=== PATIENT | male | born 1935 | race Caucasian/White ===

== ENCOUNTER 2020-03-04 10:04 | Day surgery (SDC) | payer MEDICARE, BC ==
[~2020-03-04 10:04] MED LIST: Lactated Ringers 1,000 ML IV SCH; Lidocaine 1%/Sod Bicarbonate in NS 8.4% 1 ML Syringe IDERM PRN; Sodium Chloride 0.9% 10 ML Syringe FLUSH PRN
--- NOTE | 2020-03-04 11:00 | PCM.PREANE ---
Preanesthetic Assessment - Anesthesia/Transfusion/Family Hx Anesthesia History: Prior Anesthesia Without Reaction Family History of Anesthesia Reaction: No Transfusion History: No Prior Transfusion(s) - Review of Systems General: No Symptoms, Other (multiple sclerosis) Pulmonary: No Symptoms Cardiovascular: Other (AICD/pacemaker, s/p CABG, denies any chest pain, stopped coumadinx2 weeks) Gastrointestinal: No Symptoms Neurological: No Symptoms, Numbness (right arm numbness) Other: Reports: Easy Bleeding, Easy Bruising, Thyroid Problems, Depression - Physical Assessment NPO Status Date: 03/03/20 NPO Status Time: 18:00 Height: 1.73 m Weight: 68.492 kg ASA Class: 3 Mental Status: Alert & Oriented x3 Airway Class: Mallampati = 2 Dentition: Reports: Dentures (upper) Thyro-Mental Finger Breadths: 3 Mouth Opening Finger Breadths: 3 ROM/Head Extension: Full Lungs: Clear to Auscultation, Normal Respiratory Effort Cardiovascular: Regular Rate, Regular Rhythm - Allergies Allergies/Adverse Reactions: Allergies Allergy/AdvReac Type Severity Reaction Status Date / Time Sulfa (Sulfonamide Allergy Cannot Verified 03/03/20 13:41 Antibiotics) Remember - Blood Blood Available: No Product(s) Available: None - Anesthesia Plan Beta Cholo: Metoprolol Med Last Dose Date: 03/04/20 Med Last Dose Time: 07:00 - Acknowledgements Anesthesia Type Planned: General Anesthesia, MAC Pt an Appropriate Candidate for the Planned Anesthesia: Yes Alternatives and Risks of Anesthesia Discussed w Pt/Guardian: Yes Pt/Guardian Understands and Agrees with Anesthesia Plan: Yes PreAnesthesia Questionnaire - HOME MEDS Home Medications: Home Meds Amiodarone [Cordarone] 100 mg PO DAILY 03/03/20 [History] Aspirin [Halfprin] 81 mg PO DAILY 03/03/20 [History] Furosemide [Lasix] 40 mg PO DAILY 03/03/20 [History] Levothyroxine [Synthroid] 100 mcg PO DAILY 03/03/20 [History] Metoprolol Succinate 50 mg PO DAILY 03/03/20 [History] Mirtazapine [Remeron] 15 mg PO DAILY 03/03/20 [History] Simvastatin [Zocor] 40 mg PO DAILY 03/03/20 [History] Tamsulosin [Flomax] 0.4 mg PO DAILY 03/03/20 [History] Warfarin Sodium [Coumadin] 2 mg PO ASDIRECTED 03/03/20 [History] - CURRENT (IN HOUSE) MEDS Current Meds: Current Medications Lactated Ringer's (Ringers, Lactated) 1,000 mls @ 125 mls/hr IV ASDIRECTED [place] Stop: 03/04/20 23:00 Lidocaine/Sodium Bicarbonate (Buffered Lidocaine 1% In Ns 8.4%) 0.25 ml IDERM ONETIME PRN PRN Reason: Prior to IV Start Stop: 03/04/20 18:00 Sodium Chloride (Saline Flush) 10 ml FLUSH ASDIRECTED PRN PRN Reason: Keep Vein Open Stop: 03/04/20 18:00
[2020-03-04] MEDS ORDERED: Lidocaine 1% with EPINEPHrine 1:100,000 20 ML MDV ONE (11:26)
[2020-03-04] MEDS: Proparacaine 0.5% Ophth Soln 15 ML Bottle EYEBOTH SCH ×3 (11:55→12:06)
[2020-03-04] MEDS ORDERED: Propofol 200 MG/20 ML SDV ONE (12:09)
[2020-03-04] MEDS ORDERED: ePHEDrine Sulfate/0.9% NaCl/Pf 25 MG/5 ML SYRINGE IV ONE (12:32)
--- NOTE | 2020-03-04 12:54 | PCM48HPAN ---
Post Anesthesia Note - EVALUATION WITHIN 48HRS OF ANESTHETIC Vital Signs in Normal Range: Yes Patient Participated in Evaluation: Yes Respiratory Function Stable: Yes Airway Patent: Yes Cardiovascular Function Stable: Yes Hydration Status Stable: Yes Pain Control Satisfactory: Yes Nausea and Vomiting Control Satisfactory: Yes Mental Status Recovered: Yes Vital Signs: Last Vital Signs Temp 36.3 C 03/04/20 10:30 Pulse 62 03/04/20 10:30 Resp 20 03/04/20 10:30 BP 108/52 L 03/04/20 10:30 Pulse Ox 95 03/04/20 10:30
[2020-03-04] MEDS ORDERED: Dexamethasone/Tobramycin 0.1-0.3% Ophth Susp 5 ML Bottle EYEBOTH SCH (13:00)
== END 2020-03-04 13:50 | disposition home or self-care (01) ==
LOC: JD.SDS 10:04
PROVIDERS: ATTEND Ophthalmology
DX: H04.523 Eversion of bilateral lacrimal punctum (principal); H35.3132 Nonexudative age-related macular degeneration, bilateral, intermediate dry stage; H35.363 Drusen (degenerative) of macula, bilateral; H11.823 Conjunctivochalasis, bilateral; H04.563 Stenosis of bilateral lacrimal punctum; H02.103 Unspecified ectropion of right eye, unspecified eyelid; H02.106 Unspecified ectropion of left eye, unspecified eyelid; H04.223 Epiphora due to insufficient drainage, bilateral; F32.9 Major depressive disorder, single episode, unspecified; Z96.1 Presence of intraocular lens; Z88.2 Allergy status to sulfonamides; Z79.899 Other long term (current) drug therapy; Z79.82 Long term (current) use of aspirin
CPT/HCPCS: 67914; 68320; 68811; A9270; J0171; J2704; J7120

== ENCOUNTER 2020-05-12 17:13 | Emergency (ER) | payer MEDICARE, BC ==
[2020-05-12] MEDS ORDERED: Sodium Chloride 0.9% 10 ML Syringe FLUSH PRN (17:30)
[2020-05-12] MEDS ORDERED: HYDROmorphone 0.5 MG/0.5 ML Syringe IVPUSH ONE (17:36)
[2020-05-12] MEDS ORDERED: Ondansetron 4 MG/2 ML SDV IVPUSH ONE (17:36)
--- NOTE | 2020-05-12 17:36 | EDM.PDOC ---
ED HPI GENERAL MEDICAL PROBLEM - General Chief Complaint: Trauma Stated Complaint: FELL ON THE CEMENT HIT HIS FACE/PAIN ALL OVER BODY Time Seen by Provider: 05/12/20 17:20 Source of Information: Reports: Patient History Limitations: Reports: No Limitations - History of Present Illness INITIAL COMMENTS - FREE TEXT/NARRATIVE: 85-year-old male presents to the ED after having fallen down his outside concrete steps this morning. Patient states he was cleaning off the front stairs of his house and lost his balance and fell headfirst down 4 concrete stairs hitting his head very hard on the concrete landing. He did not lose consciousness. Did get the wind knocked out of him and subsequently has developed significant left-sided rib pain he did break his eyeglasses and has different ones on at this time. He states for a while he could not see out of his left eye but vision has returned to his left eye at this time. Patient has a contusion abrasion above his left lateral eyebrow. He is complaining of diffuse cervical neck pain worse than usual since the fall. Complaining of bilateral rib pain but worse on the left side since he fell. Abrasions to the left dorsal wrist over the ulnar styloid process. Bruising to the right elbow. Abrasion to the left anterior knee but able to walk without any hip pain. Injury occurred approximately 0730 hrs. this morning but he elected not to come to the ED until now due to increased pain. Of note the patient is on Coumadin chronically for atrial fibrillation. Remember when he had his PT/INR last checked. He has pain localized to his left forehead but no severe headache. He states his did give him 2 Tylenol tablets today and this did help somewhat with the pain. He is not sure what time this was. Onset: Today, Sudden Onset Date: 05/12/20 Onset Time: 07:30 Duration: Hour(s):, Getting Worse Location: Reports: Head (Abrasion contusion above the left eyebrow laterally.), Neck (Creased cervical neck pain compared to normal. Has terrible arthritis in his neck and lower back.), Chest (12 pain bilaterally anterior ribs.), Upper Extremity, Left (Contusion abrasion to the left dorsal ulnar wrist), Upper Extremity, Right (Bruise right elbow), Lower Extremity, Left (Contusion to the left knee) Quality: Reports: Ache, Throbbing Severity: Moderate Improves with: Reports: Medication (Chip did take the edge off the pain for a while today.), Rest Worsens with: Reports: Movement Context: Reports: Trauma (Fall down 4 concrete stairs early this a.m.). Denies: Activity, Exercise, Lifting, Sick Contact Associated Symptoms: Reports: Chest Pain. Denies: Confusion, Cough, cough w sputum, Diaphoresis, Fever/Chills, Headaches, Loss of Appetite, Malaise, Nausea/Vomiting, Rash, Seizure, Shortness of Breath, Syncope, Weakness Treatments COM[employer]: Reports: Acetaminophen (Tabs earlier today.) Thoracic Pain Score (Numeric/FACES): 6 - Related Data Allergies Allergy/AdvReac Type Severity Reaction Status Date / Time Sulfa (Sulfonamide Allergy Cannot Verified 05/12/20 17:31 Antibiotics) Remember Home Meds: Home Meds Amiodarone [Cordarone] 100 mg PO DAILY 03/03/20 [History] Aspirin [Halfprin] 81 mg PO DAILY 03/03/20 [History] Furosemide [Lasix] 40 mg PO DAILY 03/03/20 [History] Levothyroxine [Synthroid] 100 mcg PO DAILY 03/03/20 [History] Metoprolol Succinate 50 mg PO DAILY 03/03/20 [History] Mirtazapine [Remeron] 15 mg PO DAILY 03/03/20 [History] Simvastatin [Zocor] 40 mg PO DAILY 03/03/20 [History] Tamsulosin [Flomax] 0.4 mg PO DAILY 03/03/20 [History] Warfarin Sodium [Coumadin] 2 mg PO ASDIRECTED 03/03/20 [History] Acetaminophen/HYDROcodone [Elverta 325-5 MG] 1 tab PO Q6H #20 tablet 05/12/20 [Rx] Past Medical History HEENT History: Reports: Cataract (He had both cataracts fixed up within the last 6 months. Read sometimes without his glasses.), Other (See Below) (Wears glasses) Cardiovascular History: Reports: Afib (Is on Coumadin for this.), Arrhythmia, Bypass, CAD, Heart Failure, Hypertension, [place], PVD, SOB on Exertion Respiratory History: Reports: COPD (History of but not on oxygen.) Gastrointestinal History: Reports: GERD Genitourinary History: Reports: BPH Musculoskeletal History: Reports: Back Pain, Chronic, Neck Pain, Chronic, Osteoarthritis, Osteoporosis Endocrine/Metabolic History: Reports: Hypothyroidism (Levothyroxine 100 mcg daily) Social & Family History - Tobacco Use Smoking Status *Q: Former Smoker Used Tobacco, but Quit: Yes Month/Year Tobacco Last Used: 35 years ago Second Hand Smoke Exposure: No - Caffeine Use Caffeine Use: Reports: Coffee - Recreational Drug Use Recreational Drug Use: No - Living Situation & Occupation Living situation: Reports: Occupation: Retired Review of Systems - Review of Systems Review Of Systems: See Below Constitutional: Denies: Chills, Diaphoresis, Fever, Weakness Eyes: Reports: Glasses Ears: Reports: Other Nose: Reports: No Symptoms (He is moderately hard of hearing but does not wear hearing aids.) Mouth/Throat: Reports: No Symptoms Respiratory: Reports: Shortness of Breath, Other (Is have some pain on deep inspiration left ribs). Denies: Wheezing, Pleuritic Chest Pain, Cough Cardiovascular: Reports: Chest Pain (Injury to the ribs when he fell down stairs), Irregular Heart Rate, Lightheadedness (Neck atrial fibrillation. Patient lightheadedness). Denies: Edema GI/Abdominal: Reports: Constipation (There is no problems with constipation) Genitourinary: Reports: Other (Urinary frequency with nocturia usually 2-3 times nightly.) Musculoskeletal: Reports: Joint Pain (His hips lower back neck pain from arthritis.) Skin: Reports: Bruising (This is easily as he is on Coumadin.) Neurological: Reports: Weakness. Denies: Confusion, Dizziness, Headache, Numbness, Syncope, Tingling Psychiatric: Reports: No Symptoms ED EXAM, GENERAL - Physical Exam Exam: See Below Exam Limited By: No Limitations General Appearance: Alert, Mild Distress, Other (Temperature is 36.9 heart rate is 70. Respiratory to 16 BP 153/62 sats are 92% on room air. He has an obvious rib abrasion and small scalp hematoma above his left lateral eyebrow.) Eye Exam: Bilateral Eye: Normal Inspection, PERRL Ears: Normal External Exam Nose: Normal Inspection, Other (No injury to the nose appears to have occurred.) Throat/Mouth: Normal Inspection, Normal Lips, Normal Oropharynx, Other (Dental or tongue injuries identified. Mandible intact. No TMJ pain.) Head: Facial Swelling (Left eyebrow laterally.), Facial Tenderness (Slight swelling hematoma left lateral eyebrow area.). No: Sinus Tenderness Neck: Limited Range of Motion, Tender Lateral (Use tenderness in the midline and laterally of the cervical spine. He does report that is worse than normal), Tender Midline ( as he fell.) Respiratory/Chest: Lungs Clear, Normal Breath Sounds, Respiratory Distress (Mildly hypoxic by pulse oximetry at 92%.), Decreased Breath Sounds (Breath sounds are mildly diminished to the lower posterior lung tran bilaterally. No adventitial sounds are identified.), Other (Midline sternotomy incision from bypass surgery which he states was done greater than 20 years ago. He cannot remember for sure but he thinks he had 4 vessel bypass. He has a defibrillator pacemaker left upper anterior chest. He states the first 1 lasted for 7 years and this is his second 1 recently replaced. To his knowledge that the defibrillator has never gone off.) Cardiovascular: No JVD, No Murmur, No Rub, Irregularly Irregular (Chronic atrial fibrillation with controlled rate in the 70s. Patient has had previous open heart surgery with midline sternotomy evident. You have has a pacemaker defibrillator left upper anterior chest.). No: Normal Peripheral Pulses Peripheral Pulses: 1+: Posterior Tibial (L), Posterior Tibial (R), Dorsalis Pedis (L), Dorsalis Pedis (R), 2+: Carotid (L), Carotid (R) GI/Abdominal: Normal Bowel Sounds, Soft, Non-Tender, No Organomegaly, No Mass, Pelvis Stable, Other (No evidence of abdominal injury.) Back Exam: Other (Painful to sit up. No abrasions contusions appreciated to the posterior lateral thorax.) Extremities: Other (Patient has an abrasion and superficial skin loss over the ulnar styloid process of left wrist. Appears to have normal range of motion. He has bruising right forearm and right elbow. He has evidence of arthritic changes in both shoulders with crepitus but no injuries to the acromioclavicular joints or upper humeri. Lower extremity reveals he is able to walk and lift both legs off the gurney without issue. He has an abrasion to his left anterior knee.) Neurological: Alert, Oriented, CN II-XII Intact, Normal Cognition Psychiatric: Normal Affect, Normal Mood Skin Exam: Warm, Dry, Other (Abrasions left ulnar wrist left anterior knee left forehead above left lateral eyebrow) Course - Vital Signs Last Recorded V/S: Last Vital Signs Temp 36.9 C 05/12/20 17:23 Pulse 70 05/12/20 17:23 Resp 16 05/12/20 17:23 BP 153/62 H 05/12/20 17:23 Pulse Ox 92 L 05/12/20 17:23 - Orders/Labs/Meds Orders: Active Orders 24 hr Category Date Time Status Peripheral IV Care [RC] . DIRECTED Care 05/12/20 17:31 Active Cervical Spine wo Cont [CT] Stat Exams 05/12/20 17:33 Taken Chest wo Cont [CT] Stat Exams 05/12/20 17:34 Taken Head wo Cont [CT] Stat Exams 05/12/20 17:31 Taken Wrist Comp Min 3V Lt [CR] Stat Exams 05/12/20 17:35 Taken Sodium Chloride 0.9% [Saline Flush] Med 05/12/20 17:30 Active 10 ml FLUSH ASDIRECTED PRN Peripheral IV Insertion Adult [OM.PC] Stat Oth 05/12/20 17:31 Ordered Medication Orders Sodium Chloride (Saline Flush) 10 ml FLUSH ASDIRECTED PRN PRN Reason: Keep Vein Open Last Admin: 05/12/20 18:26 Dose: 10 ml Documented by: HOMAR Labs: Laboratory Tests 05/12/20 05/12/20 05/12/20 Range/Units 18:25 18:25 18:25 WBC 8.21 (4.23-9.07) K/mm3 RBC 4.76 (4.63-6.08) M/mm3 Hgb 14.5 (13.7-17.5) gm/dl Hct 44.4 (40.1-51.0) % MCV 93.3 H (79.0-92.2) fl MCH 30.5 (25.7-32.2) pg MCHC 32.7 (32.2-35.5) g/dl RDW Std Deviation 47.2 H (35.1-43.9) fL Plt Count 221 (163-337) K/mm3 MPV 9.1 L (9.4-12.3) fl Neut % (Auto) 68.0 H (34.0-67.9) % Lymph % (Auto) 16.6 L (21.8-53.1) % Sumner % (Auto) 11.9 (5.3-12.2) % Eos % (Auto) 2.9 (0.8-7.0) Baso % (Auto) 0.4 (0.1-1.2) % Neut # (Auto) 5.58 H (1.78-5.38) K/mm3 Lymph # (Auto) 1.36 (1.32-3.57) K/mm3 Sumner # (Auto) 0.98 H (0.30-0.82) K/mm3 Eos # (Auto) 0.24 (0.04-0.54) K/mm3 Baso # (Auto) 0.03 (0.01-0.08) K/mm3 PT 53.4 H* (9.7-12.0) SECONDS INR 5.15 H* Sodium 139 (136-145) mEq/L Potassium 3.4 L (3.5-5.1) mEq/L Chloride 101 (98-107) mEq/L Carbon Dioxide 29 (21-32) mEq/L Anion Gap 12.4 (5-15) BUN 15 (7-18) mg/dL Creatinine 1.3 (0.7-1.3) mg/dL Est Cr Clr Drug Dosing 35.96 mL/min Estimated GFR (MDRD) 52 (>60) mL/min BUN/Creatinine Ratio 11.5 L (14-18) Glucose 105 (83-115) mg/dL Calcium 8.5 (8.5-10.1) mg/dL Magnesium 1.9 (1.8-2.4) mg/dl Total Bilirubin 0.4 (0.2-1.0) mg/dL AST 19 (15-37) U/L ALT 10 L (16-63) U/L Alkaline Phosphatase 80 (46-116) U/L Total Protein 6.5 (6.4-8.2) g/dl Albumin 2.8 L (3.4-5.0) g/dl Globulin 3.7 gm/dL Albumin/Globulin Ratio 0.8 L (1-2) Meds: Medications Generic Name Dose Route Start Last Admin Trade Name Freq PRN Reason Stop Dose Admin Sodium Chloride 10 ml 05/12/20 17:30 05/12/20 18:26 Saline Flush FLUSH 10 ml ASDIRECTED PRN Administration Keep Vein Open Discontinued Medications Generic Name Dose Route Start Last Admin Trade Name Darian PRN Reason Stop Dose Admin Hydromorphone HCl 0.5 mg 05/12/20 17:36 05/12/20 18:26 Dilaudid IVPUSH 05/12/20 17:37 0.5 mg ONETIME ONE Administration Ondansetron HCl 4 mg 05/12/20 17:36 05/12/20 18:26 Zofran IVPUSH 05/12/20 17:37 4 mg ONETIME ONE Administration - Radiology Interpretation Free Text/Narrative:: 85-year-old male presents to the ED after falling down earlier this a.m. He was cleaning off the stoop in front of his house this morning and inadvertently lost his balance falling down 4 concrete stairs landing hard headfirst on the concrete landing. This did not result in a loss of consciousness. He suffered a abrasion to the left forehead above his left lateral eyebrow with active bleeding. Subsequently he has not developed a headache or nausea or vomiting. He has a superficial abrasion skin loss over the ulnar styloid process of his left wrist but clinically no fractures in this area. Abrasion to the anterior aspect of his left knee but again clinically no fractures. He is able to weight-bear and walk without a limp. Complaining of bilateral chest wall pain on inspiration. Painful to sit him up for back examination. States it does hurt to take a full deep breath in his left ribs. Patient is on Coumadin chronically for chronic atrial fibrillation. Therefore he was a trauma alert. Plan he will have CT head, CT cervical spine and CT chest performed without contrast. Lab work will be done routinely including PT/INR. - Re-Assessments/Exams Free Text/Narrative Re-Assessment/Exam: 05/12/20 18:47 CT of his head reveals age-appropriate degenerative changes with chronic microvascular ischemic disease in both basal ganglia areas. No evidence for acute transcortical infarct. No mass-effect or midline shift. No extra- axial collection. No acute intracranial hemorrhage. Basal cisterns are patent. No acute skull fracture appreciated. Visualized mastoid air cells are well aerated. Previous bilateral cataract surgery. Very minimal hematoma over the left frontal scalp identified on CT. CT of his cervical spine reveals moderate grade degenerative changes within the cervical spine. Alignment remains anatomic with no fractures identified. The C5-C6 level there is moderate sized disc osteophyte complex. No severe spinal canal stenosis identified no significant neuroforaminal narrowing. At the C6-C7 level there is small disc osteophyte complex. Again no severe spinal canal stenosis no significant neuroforaminal narrowing. At C7-T1 no significant disc protrusion. No severe spinal canal stenosis identified no significant neuroforaminal narrowing. There is no prevertebral soft tissue edema. CT of the chest reveals a left-sided defibrillator present. Postoperative changes are present from previous cardiac surgery. Lungs reveal chronic appearing interstitial changes within the lung parenchyma with atelectasis in lower lobes and multiple large bullae compatible with significant COPD. There is no pleural effusion or pneumothorax. 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 Severe coronary artery atherosclerosis is present involving the ione coronary arteries. 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 No enlarged hilar adenopathy. Fractures are present involving the sixth and seventh ribs posteriorly. A moderate grade fracture present involving the T6 vertebral body this is of unclear antique witty. No prior studies are available to confirm acuity. There is no fracture of the posterior elements. Assessment is mildly offset fractures involving the sixth and seventh ribs posteriorly. No pulmonary contusion present 05/12/20 18:51 White count is 8.21. Differential is 60% neutrophils. Hemoglobin is 14.5 with hematocrit of 44.4. Platelet count is 221,000. 05/12/20 19:06 PT is markedly elevated at 53.4 and INR is markedly elevated at 5.15. Chemistry reveals a sodium of 139 and a potassium of 3.4. Chloride is 101 with a bicarb of 29. Anion gap is 12.4 BUN is 15 with a creatinine of 1.3.. Estimated GFR is 52. Glucose is 105 and calcium is 8.5. Magnesium is 1.9. Liver function is normal. Total protein is 6.5 slightly low with an albumin fraction of 2.8 also slightly low. Discussed the findings with the patient and decision made to place his Coumadin on hold for the next 3 days as he takes it in the morning. Then start back on 2 mg once daily and have Coumadin checkup on Tuesday next week. I wrote a prescription for tramadol 50 mg tablets that he can take 1 tablet every 6 hours if Tylenol is not holding his pain as he is likely to have much worse pain in his ribs over the next couple of days. I suspect the fracture of the T6 vertebra is likely old as he does not have any localized tenderness in his mid back he complains only of his ribs being painful. Advised to follow-up with his personal care physician next Tuesday as well for review since he is at risk for pneumonia due to his COPD Departure - Departure Time of Disposition: 19:15 Disposition: Home, Self-Care 01 Condition: Fair Clinical Impression: Supratherapeutic INR, Compression fracture of body of thoracic vertebra Fall as cause of accidental injury at home as place of occurrence Qualifiers: Encounter type: initial encounter Qualified Code(s): W19.XXXA - Unspecified fall, initial encounter; Y92.009 - Unspecified place in unspecified non-institutional (private) residence as the place of occurrence of the external cause Closed head injury without concussion Qualifiers: Encounter type: initial encounter Qualified Code(s): S09.90XA - Unspecified injury of head, initial encounter Abrasion of face and extremities Qualifiers: Encounter type: initial encounter Laterality: left Qualified Code(s): S00.81XA - Abrasion of other part of head, initial encounter; S40.812A - Abrasion of left upper arm, initial encounter; S80.812A - Abrasion, left lower leg, initial encounter Left rib fracture Qualifiers: Encounter type: initial encounter Rib fracture type: multiple ribs Fracture type: closed Qualified Code(s): S22.42XA - Multiple fractures of ribs, left side, initial encounter for closed fracture - Discharge Information *PRESCRIPTION DRUG MONITORING PROGRAM REVIEWED*: Not Applicable *COPY OF PRESCRIPTION DRUG MONITORING REPORT IN PATIENT ODELL: Not Applicable Prescriptions: Acetaminophen/HYDROcodone [Elverta 325-5 MG] 1 tab PO Q6H #20 tablet Instructions: Head Injury, Adult, [id number] Referrals: Gabriel Amador MD [Primary Care Provider] - Forms: ED Department Discharge Additional Instructions: Evaluation in the emergency room today in regards to injuries sustained from a fall down concrete stairs outside her home this morning. You suffered blunt trauma to the left forehead with a small hematoma and abrasion above your eyebrow on the left side. CT scan of the brain reveals no intracranial bleeding or skull fractures. Increased neck pain since fall this morning. CT reveals degenerative arthritis at multiple levels of your neck but no broken bones or malalignment. CT scan of your chest reveals broken ribs at #6 and 7 on the left side near the spine. There is also a compression fracture of #6 vertebra in your mid back but it is unclear if this is old or new. The other major finding today was a markedly elevated INR which is an elevated Coumadin time. It was 5.15 and it should be 2.3-2.5. You need to place your Coumadin medicine on hold for the next 3 mornings and then resume 2 mg tablet once daily. You will need to follow-up with your doctor next Tuesday please phone tomorrow and make an appointment for this you will require a repeat PT INR or Coumadin time check at that time. I have written a prescription for Elverta pain medication to be taken if Tylenol alone is insufficient to control your pain. Ideally 1 tablet every 6 hours to control pain as needed. This medicine unfortunately causes consti pation and you would have to take a stool softener such as MiraLAX powder 17 g or 1 scoop every day to prevent constipation. Sepsis Event Note (ED) - Evaluation Sepsis Screening Result: No Definite Risk - Focused Exam Vital Signs: Vital Signs Temp Pulse Resp BP Pulse Ox 05/12/20 17:23 36.9 C 70 16 153/62 H 92 L - My Orders Last 24 Hours: My Active Orders 05/12/20 17:30 Sodium Chloride 0.9% [Saline Flush] 10 ml FLUSH ASDIRECTED PRN 05/12/20 17:31 Peripheral IV Care [RC] . DIRECTED Head wo Cont [CT] Stat Peripheral IV Insertion Adult [OM.PC] Stat 05/12/20 17:33 Cervical Spine wo Cont [CT] Stat 05/12/20 17:34 Chest wo Cont [CT] Stat 05/12/20 17:35 Wrist Comp Min 3V Lt [CR] Stat - Assessment/Plan Last 24 Hours: My Active Orders 05/12/20 17:30 Sodium Chloride 0.9% [Saline Flush] 10 ml FLUSH ASDIRECTED PRN 05/12/20 17:31 Peripheral IV Care [RC] . DIRECTED Head wo Cont [CT] Stat Peripheral IV Insertion Adult [OM.PC] Stat 05/12/20 17:33 Cervical Spine wo Cont [CT] Stat 05/12/20 17:34 Chest wo Cont [CT] Stat 05/12/20 17:35 Wrist Comp Min 3V Lt [CR] Stat
--- NOTE | 2020-05-13 08:07 | CR ---
Left wrist: 4 views left wrist were obtained. Comparison: No prior wrist study. Joint space narrowing is noted between the radius and proximal carpal row. 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 Joint space narrowing is noted off the distal navicular bone and at the CMC joint of the thumb. Slight osteopenia is noted. No acute fracture, dislocation or other bony abnormality is appreciated. Impression: 1. Degenerative change and old injury as noted above. 2. Nothing acute is identified on 4 view left wrist exam. Diagnostic code #3 This report was dictated in MDT
--- NOTE | 2020-05-13 08:07 | CT ---
Head CT Technique: Multiple axial sections through the brain were obtained. Intravenous contrast was not utilized. Comparison: Prior head CT study of 12/27/11. Findings: Ventricles along with basal cisterns and sulci over the convexities are mildly prominent. Diminished density is noted within portions of the periventricular and subcortical white matter which is felt compatible with small vessel ischemic demyelination change. No other abnormal parenchymal densities are seen. No evidence of intracranial hemorrhage. No midline shift or mass-effect is seen. Bone window settings were reviewed. Visualized mastoid sinuses and visualized paranasal sinuses show nothing acute. No acute calvarial finding is appreciated. Mild atherosclerotic calcification is seen within the carotid siphon and within the vertebral vessels. Impression: 1. Senescent change as described above. 2. No acute intracranial abnormality is appreciated. Diagnostic code #2 This report was dictated in MDT I agree with preliminary report from [facility], finalized on 05/12/20, 7:17 PM Central Daylight Time
--- NOTE | 2020-05-13 08:07 | CT ---
CT cervical spine Technique: Multiple axial sections were obtained from above C1 inferiorly to the mid T4 level. Reconstructed sagittal and coronal images were reviewed. Findings: Disc space narrowing is noted at C3-4, C4-5, C5-6, C6-7 and at C7-T1. Posterior osteophytes are noted at the same levels which are most prominent at C5-6 and C6-7. Mild scattered anterior osteophytes are noted. Vertebral body heights are maintained. Diffuse degenerative apophyseal change is noted throughout the cervical spine. Scoliosis is noted. Degenerative change is scattered throughout the uncovertebral joints. No discrete fracture is seen. Mild spondylolisthesis is noted at C4-5 due to degenerative apophyseal change. Scattered neural foraminal stenosis is seen. Impression: 1. Degenerative change as described above. 2. No acute abnormality is appreciated. Diagnostic code #3 This report was dictated in MDT I agree with preliminary report from [facility], finalized on 05/12/20, 7:14 PM Central Daylight Time
--- NOTE | 2020-05-13 08:07 | CT ---
CT chest Technique: Multiple axial sections through the chest were obtained. Intravenous contrast not utilized. Reconstructed coronal and sagittal images were obtained. Comparison: No prior chest CT is available. Findings: Thoracic aorta shows atherosclerotic calcification without aneurysm. Coronary artery calcification is seen. Calcification is noted within the left ventricular myocardial wall. 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 Lungs show slight increased density posteriorly within both bases most likely representing scarring. No acute pulmonary contusion is appreciated. Bone window settings were reviewed. Compression deformity noted at T6. No definite acute fracture line is seen and this is most likely old although MRI would be needed to confirm this impression. Scattered degenerative change within the spine with scoliosis is noted. No acute abnormality is appreciated within the thoracic spine. Prior sternotomy is noted. Old healed fracture is noted within the left first rib. Slightly displaced fracture is noted within the posterior left sixth rib which is acute. Possible additional nondisplaced acute fracture within the posterior left seventh rib. No additional rib abnormalities are appreciated. Impression: 1. Slightly displaced acute rib fracture within the left posterior sixth rib. Possible acute nondisplaced fracture within the posterior left seventh rib. 2. Moderate compression deformity of T6 most likely old. MRI would be needed to confirm if clinically needed. 3. Chronic change within both lung bases. No other acute finding is seen. Diagnostic code #3 This report was dictated in MDT I agree with preliminary report from [facility], finalized on 05/12/20, 7:13 PM Central Daylight Time
== END 2020-05-12 19:50 | disposition home or self-care (01) ==
LOC: JD.ED 17:13
DX: S22.42XA Multiple fractures of ribs, left side, initial encounter for closed fracture (principal); S22.059A Unspecified fracture of T5-T6 vertebra, initial encounter for closed fracture; S09.90XA Unspecified injury of head, initial encounter; S00.12XA Contusion of left eyelid and periocular area, initial encounter; S50.01XA Contusion of right elbow, initial encounter; S60.812A Abrasion of left wrist, initial encounter; S80.212A Abrasion, left knee, initial encounter; S00.81XA Abrasion of other part of head, initial encounter; R79.1 Abnormal coagulation profile; J44.9 Chronic obstructive pulmonary disease, unspecified; K59.00 Constipation, unspecified; R35.0 Frequency of micturition; I48.91 Unspecified atrial fibrillation; I11.0 Hypertensive heart disease with heart failure; I50.9 Heart failure, unspecified; I25.10 Atherosclerotic heart disease of native coronary artery without angina pectoris; I95.1 Orthostatic hypotension; I25.2 Old myocardial infarction; E03.9 Hypothyroidism, unspecified; Z87.891 Personal history of nicotine dependence; Z88.2 Allergy status to sulfonamides; Z79.82 Long term (current) use of aspirin; Z79.899 Other long term (current) drug therapy; W10.9XXA Fall (on) (from) unspecified stairs and steps, initial encounter
CPT/HCPCS: 36415; 70450; 71250; 72125; 73110; 80053; 83735; 85025; 85610; 96374; 96375; 99285; J1170; J2405; 99284

== ENCOUNTER 2020-11-11 17:04 | Observation (INO) | payer MEDICARE, BC ==
[2020-11-11] MEDS ORDERED: Sodium Chloride 0.9% 10 ML Syringe FLUSH PRN (17:07)
--- NOTE | 2020-11-11 17:21 | EDM.PDOC ---
ED HPI GENERAL MEDICAL PROBLEM - General Chief Complaint: Trauma Stated Complaint: [facility] Time Seen by Provider: 11/11/20 17:06 Source of Information: Reports: Patient History Limitations: Reports: No Limitations - History of Present Illness INITIAL COMMENTS - FREE TEXT/NARRATIVE: The patient presents by [facility] for a fall and a head bleed. The patient was coming in for a doctor's appointment and the wind caught him and he fell and hit his head. He had no LOC. He has a headache and a cut to the back of his head. He had a CT of his head and there is a small intracranial hemorrhage. The provider there talked with the neurosurgeon and ER doctor. They recommended reversing his coumadin and admission for observation. When the patient arrives he is alert and talking and moving all 4 extremities. He has a headache to the back of his head. He has a laceration back there also. He has no numbness or weakness. He has no neck pain. He is not sure why he is on the coumadin. He thinks it has to do with a heart rhythm. Onset: Sudden Duration: Hour(s): Location: Reports: Head Quality: Reports: Sharp Severity: Moderate Improves with: Reports: None Worsens with: Reports: None Associated Symptoms: Reports: Headaches. Denies: Chest Pain, Cough, Fever/Chills, Nausea/Vomiting, Shortness of Breath Head Pain Score (Numeric/FACES): 3 - Related Data Allergies Allergy/AdvReac Type Severity Reaction Status Date / Time Sulfa (Sulfonamide Allergy Cannot Verified 11/11/20 17:12 Antibiotics) Remember Home Meds: Home Meds Amiodarone [Cordarone] 100 mg PO DAILY 03/03/20 [History] Aspirin [Halfprin] 81 mg PO DAILY 03/03/20 [History] Furosemide [Lasix] 40 mg PO DAILY 03/03/20 [History] Levothyroxine [Synthroid] 100 mcg PO DAILY 03/03/20 [History] Metoprolol Succinate 50 mg PO DAILY 03/03/20 [History] Mirtazapine [Remeron] 15 mg PO DAILY 03/03/20 [History] Simvastatin [Zocor] 40 mg PO DAILY 03/03/20 [History] Tamsulosin [Flomax] 0.4 mg PO DAILY 03/03/20 [History] Warfarin Sodium [Coumadin] 2 mg PO ASDIRECTED 03/03/20 [History] Acetaminophen/HYDROcodone [[place] 325-5 MG] 1 tab PO Q6H #20 tablet 05/12/20 [Rx] Past Medical History HEENT History: Reports: Cataract (He had both cataracts fixed up within the last 6 months. Read sometimes without his glasses.), Other (See Below) (Wears glasses) Cardiovascular History: Reports: Afib (Is on Coumadin for this.), Arrhythmia, Bypass, CAD, Heart Failure, Hypertension, [place], PVD, SOB on Exertion Respiratory History: Reports: COPD (History of but not on oxygen.) Gastrointestinal History: Reports: GERD Genitourinary History: Reports: BPH Musculoskeletal History: Reports: Back Pain, Chronic, Neck Pain, Chronic, Osteoarthritis, Osteoporosis Endocrine/Metabolic History: Reports: Hypothyroidism (Levothyroxine 100 mcg daily) Oncologic (Cancer) History: Reports: Prostate - Past Surgical History Musculoskeletal Surgical History: Reports: Other (See Below) Other Musculoskeletal Surgeries/Procedures:: back sugery Social & Family History - Caffeine Use Caffeine Use: Reports: Coffee - Living Situation & Occupation Living situation: Reports: Occupation: Retired Review of Systems - Review of Systems Review Of Systems: See Below Constitutional: Reports: No Symptoms Eyes: Reports: No Symptoms Ears: Reports: No Symptoms Nose: Reports: No Symptoms Mouth/Throat: Reports: No Symptoms Respiratory: Reports: No Symptoms Cardiovascular: Reports: No Symptoms GI/Abdominal: Reports: No Symptoms Genitourinary: Reports: No Symptoms Musculoskeletal: Reports: No Symptoms Skin: Reports: No Symptoms Neurological: Reports: Headache ED EXAM, GENERAL - Physical Exam Exam: See Below Exam Limited By: No Limitations General Appearance: Alert, No Apparent Distress Ears: Normal External Exam Nose: Normal Inspection Head: Other (1.5cm laceration to the right parietal region) Neck: Normal Inspection, Supple, Non-Tender Respiratory/Chest: No Respiratory Distress, Lungs Clear, Normal Breath Sounds Cardiovascular: Regular Rate, Rhythm, No Edema, No Murmur GI/Abdominal: Soft, Non-Tender, No Organomegaly, No Mass Back Exam: Normal Inspection Extremities: Normal Inspection Neurological: Alert, Oriented, No Motor/Sensory Deficits Course - Vital Signs Last Recorded V/S: Last Vital Signs Temp 97.4 F 11/11/20 17:27 Pulse 60 02/23/21 17:27 Resp 18 11/11/20 17:27 BP 150/79 H 11/11/20 17:27 Pulse Ox 94 L 11/11/20 17:27 - Orders/Labs/Meds Orders: Active Orders 24 hr Category Date Time Status Sodium Chloride 0.9% [Saline Flush] Med 11/11/20 17:07 Active 10 ml FLUSH ASDIRECTED PRN Peripheral IV Insertion Adult [OM.PC] Stat Oth 11/11/20 17:07 Ordered Medication Orders Sodium Chloride (Saline Flush) 10 ml FLUSH ASDIRECTED PRN PRN Reason: Keep Vein Open Last Admin: 11/11/20 18:01 Dose: 10 ml Documented by: GENI Labs: Laboratory Tests 11/11/20 11/11/20 11/11/20 Range/Units 17:28 17:28 17:28 WBC 10.36 H (4.23-9.07) K/mm3 RBC 5.02 (4.63-6.08) M/mm3 Hgb 15.3 (13.7-17.5) gm/dl Hct 47.4 (40.1-51.0) % MCV 94.4 H (79.0-92.2) fl MCH 30.5 (25.7-32.2) pg MCHC 32.3 (32.2-35.5) g/dl RDW Std Deviation 53.1 H (35.1-43.9) fL Plt Count 234 (163-337) K/mm3 MPV 10.1 (9.4-12.3) fl Neut % (Auto) 68.3 H (34.0-67.9) % Lymph % (Auto) 20.9 L (21.8-53.1) % [place] % (Auto) 7.3 (5.3-12.2) % Eos % (Auto) 2.7 (0.8-7.0) Baso % (Auto) 0.3 (0.1-1.2) % Neut # (Auto) 7.07 H (1.78-5.38) K/mm3 Lymph # (Auto) 2.17 (1.32-3.57) K/mm3 [place] # (Auto) 0.76 (0.30-0.82) K/mm3 Eos # (Auto) 0.28 (0.04-0.54) K/mm3 Baso # (Auto) 0.03 (0.01-0.08) K/mm3 Manual Slide Review Abnormal smear PT 15.9 H (9.7-12.0) SECONDS INR 1.50 APTT 33.8 H (21.7-31.4) SECONDS Sodium 141 (136-145) mEq/L Potassium 4.2 (3.5-5.1) mEq/L Chloride 104 (98-107) mEq/L Carbon Dioxide 25 (21-32) mEq/L Anion Gap 16.2 H (5-15) BUN 21 H (7-18) mg/dL Creatinine 1.2 (0.7-1.3) mg/dL Est Cr Clr Drug Dosing 37.73 mL/min Estimated GFR (MDRD) 57 (>60) mL/min BUN/Creatinine Ratio 17.5 (14-18) Glucose 88 (83-115) mg/dL Calcium 8.9 (8.5-10.1) mg/dL Total Bilirubin 0.4 (0.2-1.0) mg/dL AST 26 (15-37) U/L ALT 23 (16-63) U/L Alkaline Phosphatase 74 (46-116) U/L Total Protein 7.9 (6.4-8.2) g/dl Albumin 3.5 (3.4-5.0) g/dl Globulin 4.4 gm/dL Albumin/Globulin Ratio 0.8 L (1-2) SARS-CoV-2 RNA (KRISTEN) (NEGATIVE) 11/11/20 Range/Units 17:33 WBC (4.23-9.07) K/mm3 RBC (4.63-6.08) M/mm3 Hgb (13.7-17.5) gm/dl Hct (40.1-51.0) % MCV (79.0-92.2) fl MCH (25.7-32.2) pg MCHC (32.2-35.5) g/dl RDW Std Deviation (35.1-43.9) fL Plt Count (163-337) K/mm3 MPV (9.4-12.3) fl Neut % (Auto) (34.0-67.9) % Lymph % (Auto) (21.8-53.1) % [place] % (Auto) (5.3-12.2) % Eos % (Auto) (0.8-7.0) Baso % (Auto) (0.1-1.2) % Neut # (Auto) (1.78-5.38) K/mm3 Lymph # (Auto) (1.32-3.57) K/mm3 [place] # (Auto) (0.30-0.82) K/mm3 Eos # (Auto) (0.04-0.54) K/mm3 Baso # (Auto) (0.01-0.08) K/mm3 Manual Slide Review PT (9.7-12.0) SECONDS INR APTT (21.7-31.4) SECONDS Sodium (136-145) mEq/L Potassium (3.5-5.1) mEq/L Chloride (98-107) mEq/L Carbon Dioxide (21-32) mEq/L Anion Gap (5-15) BUN (7-18) mg/dL Creatinine (0.7-1.3) mg/dL Est Cr Clr Drug Dosing mL/min Estimated GFR (MDRD) (>60) mL/min BUN/Creatinine Ratio (14-18) Glucose (83-115) mg/dL Calcium (8.5-10.1) mg/dL Total Bilirubin (0.2-1.0) mg/dL AST (15-37) U/L ALT (16-63) U/L Alkaline Phosphatase (46-116) U/L Total Protein (6.4-8.2) g/dl Albumin (3.4-5.0) g/dl Globulin gm/dL Albumin/Globulin Ratio (1-2) SARS-CoV-2 RNA (KRISTEN) Negative (NEGATIVE) Meds: Medications Generic Name Dose Route Start Last Admin Trade Name Freq PRN Reason Stop Dose Admin Sodium Chloride 10 ml 11/11/20 17:07 11/11/20 18:01 Saline Flush FLUSH 10 ml ASDIRECTED PRN Administration Keep Vein Open Discontinued Medications Generic Name Dose Route Start Last Admin Trade Name Freq PRN Reason Stop Dose Admin Lidocaine/Tetracaine 1 ml 11/11/20 17:32 11/11/20 18:00 Let Soln TOP 11/11/20 17:33 1 ml ONETIME ONE Administration - Re-Assessments/Exams Free Text/Narrative Re-Assessment/Exam: 11/11/20 17:21 I ordered an IV saline lock and labs. 11/11/20 18:38 His WBC was slightly elevated at 10.36. Platelets are normal. His INR is subtherapeutic at 1.5. His CMP looks good and COVID 19 is negative. I called [facility] in [place] because I was under the impression that they accepted him there but I was wrong. The neurosurgeon said this was nonoperable and he recommended observation and repeat CT in the morning. I talked with Dr Garcia and he agreed to the admission. 11/11/20 18:[address] showed a small subarachnoid hemorrhage in the right parietal region. Departure - Departure Time of Disposition: 18:45 Disposition: Refer to Observation Condition: Fair Clinical Impression: Subarachnoid hemorrhage Fall Qualifiers: Encounter type: initial encounter Qualified Code(s): W19.XXXA - Unspecified fall, initial encounter - Discharge Information Referrals: Gabriel Amador MD [Primary Care Provider] - Forms: ED Department Discharge Sepsis Event Note (ED) - Evaluation Sepsis Screening Result: No Definite Risk - Focused Exam Vital Signs: Vital Signs Temp Pulse Resp BP Pulse Ox 11/11/20 17:27 97.4 F 60 18 150/79 H 94 L 11/11/20 17:07 97.9 F 70 22 H 143/81 H 100 - My Orders Last 24 Hours: My Active Orders 11/11/20 17:07 Sodium Chloride 0.9% [Saline Flush] 10 ml FLUSH ASDIRECTED PRN Peripheral IV Insertion Adult [OM.PC] Stat - Assessment/Plan Last 24 Hours: My Active Orders 11/11/20 17:07 Sodium Chloride 0.9% [Saline Flush] 10 ml FLUSH ASDIRECTED PRN Peripheral IV Insertion Adult [OM.PC] Stat
[2020-11-11] MEDS ORDERED: Lidocaine/EPINEPHrine/Tetracaine Soln 1 ML TOP ONE (17:32)
[2020-11-11] MEDS ORDERED: Acetaminophen 325 MG Tab PO PRN (21:27)
[2020-11-11] MEDS ORDERED: Ondansetron 4 MG Tab.DIS PO PRN (21:27)
--- NOTE | 2020-11-12 07:54 | PCM.HP.2 ---
H&P History of Present Illness - General Date of Service: 11/12/20 Admit Problem/Dx: Admission Diagnosis/Problem Admission Diagnosis/Problem Subarachnoid hemorrhage Source of Information: Patient History Limitations: Reports: No Limitations - History of Present Illness Initial Comments - Free Text/Narative: Mr. Orellana is an 85 yo man who presented to the ER from the [facility] yesterday after a fall from standing. He takes coumadin. CT of the head showed small SAH. Dr. Gomez spoke with the neurosurgeon sales and operations trainee in [place] and the plan was made to admit the patient here for observation and repeat imaging the morning following admission. INR was 1.5 on arrival and no reversal agent was administered. He feels well this morning, no complaints. Head Pain Score (Numeric/FACES): 3 - Related Data Allergies/Adverse Reactions: Allergies Allergy/AdvReac Type Severity Reaction Status Date / Time latex Allergy Cannot Verified 11/11/20 22:45 Remember Sulfa (Sulfonamide Allergy Cannot Verified 11/11/20 17:12 Antibiotics) Remember Home Medications: Home Meds Amiodarone [Cordarone] 100 mg PO DAILY 03/03/20 [History] Aspirin [Halfprin] 81 mg PO DAILY 03/03/20 [History] Furosemide [Lasix] 20 mg PO DAILY 03/03/20 [History] Levothyroxine [Synthroid] 100 mcg PO DAILY 03/03/20 [History] Metoprolol Succinate 50 mg PO BEDTIME 03/03/20 [History] Mirtazapine [Remeron] 15 mg PO BEDTIME 03/03/20 [History] Simvastatin [Zocor] 40 mg PO DAILY 03/03/20 [History] Tamsulosin [Flomax] 0.4 mg PO DAILY 03/03/20 [History] Warfarin Sodium [Coumadin] 2 mg PO DAILY 03/03/20 [History] Acetaminophen [Tylenol] 325 mg PO Q4H PRN 11/11/20 [History] Cholecalciferol (Vitamin D3) [Vitamin D] 1 tab PO DAILY 11/11/20 [History] Cyanocobalamin (Vitamin B12) [Vitamin B12] 1,000 mcg PO DAILY 11/11/20 [History] Nitroglycerin [Nitrostat] 0.4 mg SL DAILY PRN 11/11/20 [History] Spironolactone [Aldactone] 25 mg PO DAILY 11/11/20 [History] lisinopriL [Lisinopril] 5 mg PO DAILY 11/11/20 [History] Past Medical History HEENT History: Reports: Cataract, Other (See Below) Cardiovascular History: Reports: Afib, Arrhythmia, Bypass, CAD, Heart Failure, Hypertension, [place], PVD, SOB on Exertion Respiratory History: Reports: COPD Gastrointestinal History: Reports: GERD Genitourinary History: Reports: BPH Musculoskeletal History: Reports: Back Pain, Chronic Endocrine/Metabolic History: Reports: Hypothyroidism Oncologic (Cancer) History: Reports: Prostate - Past Surgical History Musculoskeletal Surgical History: Reports: Other (See Below) Other Musculoskeletal Surgeries/Procedures:: back sugery Social & Family History - Tobacco Use Tobacco Use Status *Q: Former Tobacco User Years of Tobacco use: 35 Used Tobacco, but Quit: Yes Month/Year Tobacco Last Used: 1982 - Caffeine Use Caffeine Use: Reports: Coffee, Soda - Recreational Drug Use Recreational Drug Use: No - Living Situation & Occupation Living situation: Reports: Occupation: Retired H&P Review of Systems - Review of Systems: Review Of Systems: See Below General: Reports: No Symptoms HEENT: Reports: No Symptoms Pulmonary: Reports: No Symptoms Cardiovascular: Reports: No Symptoms Gastrointestinal: Reports: No Symptoms Genitourinary: Reports: No Symptoms Musculoskeletal: Reports: No Symptoms Skin: Reports: No Symptoms Psychiatric: Reports: No Symptoms Neurological: Reports: No Symptoms Hematologic/Lymphatic: Reports: No Symptoms Immunologic: Reports: No Symptoms Exam - Exam Exam: See Below - Vital Signs Vital Signs: Last Vital Signs Temp 36.6 C 11/12/20 03:00 Pulse 69 11/12/20 03:00 Resp 18 11/12/20 03:00 BP 148/89 H 11/12/20 03:00 Pulse Ox 92 L 11/12/20 03:00 Weight: 61.507 kg - Exam General: Alert, Oriented, Cooperative HEENT: Conjunctiva Clear Neck: Supple Lungs: Normal Respiratory Effort Skin: Warm, Dry Neuro Extensive - Mental Status: Alert, Oriented x3, Normal Mood/Affect - Patient Data Lab Results Last 24 hrs: Laboratory Results - last 24 hr 11/11/20 11/11/20 11/11/20 Range/Units 17:28 17:28 17:28 WBC 10.36 H (4.23-9.07) K/mm3 RBC 5.02 (4.63-6.08) M/mm3 Hgb 15.3 (13.7-17.5) gm/dl Hct 47.4 (40.1-51.0) % MCV 94.4 H (79.0-92.2) fl MCH 30.5 (25.7-32.2) pg MCHC 32.3 (32.2-35.5) g/dl RDW Std Deviation 53.1 H (35.1-43.9) fL Plt Count 234 (163-337) K/mm3 MPV 10.1 (9.4-12.3) fl Neut % (Auto) 68.3 H (34.0-67.9) % Lymph % (Auto) 20.9 L (21.8-53.1) % [place] % (Auto) 7.3 (5.3-12.2) % Eos % (Auto) 2.7 (0.8-7.0) Baso % (Auto) 0.3 (0.1-1.2) % Neut # (Auto) 7.07 H (1.78-5.38) K/mm3 Lymph # (Auto) 2.17 (1.32-3.57) K/mm3 [place] # (Auto) 0.76 (0.30-0.82) K/mm3 Eos # (Auto) 0.28 (0.04-0.54) K/mm3 Baso # (Auto) 0.03 (0.01-0.08) K/mm3 Manual Slide Review Abnormal smear PT 15.9 H (9.7-12.0) SECONDS INR 1.50 APTT 33.8 H (21.7-31.4) SECONDS Sodium 141 (136-145) mEq/L Potassium 4.2 (3.5-5.1) mEq/L Chloride 104 (98-107) mEq/L Carbon Dioxide 25 (21-32) mEq/L Anion Gap 16.2 H (5-15) BUN 21 H (7-18) mg/dL Creatinine 1.2 (0.7-1.3) mg/dL Est Cr Clr Drug Dosing 37.73 mL/min Estimated GFR (MDRD) 57 (>60) mL/min BUN/Creatinine Ratio 17.5 (14-18) Glucose 88 (83-115) mg/dL Calcium 8.9 (8.5-10.1) mg/dL Total Bilirubin 0.4 (0.2-1.0) mg/dL AST 26 (15-37) U/L ALT 23 (16-63) U/L Alkaline Phosphatase 74 (46-116) U/L Total Protein 7.9 (6.4-8.2) g/dl Albumin 3.5 (3.4-5.0) g/dl Globulin 4.4 gm/dL Albumin/Globulin Ratio 0.8 L (1-2) SARS-CoV-2 RNA (KRISTEN) (NEGATIVE) 11/11/20 Range/Units 17:33 WBC (4.23-9.07) K/mm3 RBC (4.63-6.08) M/mm3 Hgb (13.7-17.5) gm/dl Hct (40.1-51.0) % MCV (79.0-92.2) fl MCH (25.7-32.2) pg MCHC (32.2-35.5) g/dl RDW Std Deviation (35.1-43.9) fL Plt Count (163-337) K/mm3 MPV (9.4-12.3) fl Neut % (Auto) (34.0-67.9) % Lymph % (Auto) (21.8-53.1) % [place] % (Auto) (5.3-12.2) % Eos % (Auto) (0.8-7.0) Baso % (Auto) (0.1-1.2) % Neut # (Auto) (1.78-5.38) K/mm3 Lymph # (Auto) (1.32-3.57) K/mm3 [place] # (Auto) (0.30-0.82) K/mm3 Eos # (Auto) (0.04-0.54) K/mm3 Baso # (Auto) (0.01-0.08) K/mm3 Manual Slide Review PT (9.7-12.0) SECONDS INR APTT (21.7-31.4) SECONDS Sodium (136-145) mEq/L Potassium (3.5-5.1) mEq/L Chloride (98-107) mEq/L Carbon Dioxide (21-32) mEq/L Anion Gap (5-15) BUN (7-18) mg/dL Creatinine (0.7-1.3) mg/dL Est Cr Clr Drug Dosing mL/min Estimated GFR (MDRD) (>60) mL/min BUN/Creatinine Ratio (14-18) Glucose (83-115) mg/dL Calcium (8.5-10.1) mg/dL Total Bilirubin (0.2-1.0) mg/dL AST (15-37) U/L ALT (16-63) U/L Alkaline Phosphatase (46-116) U/L Total Protein (6.4-8.2) g/dl Albumin (3.4-5.0) g/dl Globulin gm/dL Albumin/Globulin Ratio (1-2) SARS-CoV-2 RNA (KRISTEN) Negative (NEGATIVE) Result Diagrams: 11/11/20 17:28 11/11/20 17:28 Sepsis Event Note - Evaluation Sepsis Screening Result: No Definite Risk - Focused Exam Vital Signs: Vital Signs Temp Pulse Resp BP Pulse Ox 11/12/20 03:00 36.6 C 69 18 148/89 H 92 L 11/12/20 00:25 36.6 C 60 16 122/60 91 L 11/11/20 19:59 36.7 C 70 16 140/81 95 Problem List Initiated/Reviewed/Updated: Yes Orders Last 24hrs: Active Orders 24 hr Category Date Time Status Admission Status [Patient Status] [ADT] Routine ADT 11/11/20 18:48 Active Bedrest Bathroom Privileges [RC] BID Care 11/11/20 21:26 Active Regular Diet [DIET] Diet 11/12/20 Breakfast Active CTA Head W & W/O Contrast [Ang Head] [CT] Routine Exams 11/12/20 08:00 Ordered Acetaminophen [TylenoL] Med 11/11/20 21:27 Active 975 mg PO Q6H PRN Ondansetron [Zofran ODT] Med 11/11/20 21:27 Active 4 mg PO Q6H PRN Sodium Chloride 0.9% [Saline Flush] Med 11/11/20 17:07 Active 10 ml FLUSH ASDIRECTED PRN Peripheral IV Insertion Adult [OM.PC] Stat Oth 11/11/20 17:07 Ordered Code Status [Resuscitation Status] Routine Resus Stat 11/11/20 21:25 Ordered Medication Orders Acetaminophen (Tylenol) 975 mg PO Q6H PRN PRN Reason: Pain Ondansetron HCl (Zofran Odt) 4 mg PO Q6H PRN PRN Reason: Nausea/Vomiting Sodium Chloride (Saline Flush) 10 ml FLUSH ASDIRECTED PRN PRN Reason: Keep Vein Open Last Admin: 11/11/20 18:01 Dose: 10 ml Documented by: GENI Assessment/Plan Comment:: Small intracranial hemorrhage after fall from standing, on coumadin with subtherapeutic INR. Did fine overnight in observation. Plan for repeat CT head this morning. So long as bleeding has not progressed, anticipate discharge to home later today. - Mortality Measure Prognosis:: Good
--- NOTE | 2020-11-12 09:11 | CT ---
Head CT Technique: Multiple axial sections through the brain were obtained. Intravenous contrast was not utilized. Reconstructed coronal and sagittal images were obtained. Comparison: Prior head CT study of 11/11/20. Findings: Ventricles along the basal cisterns and sulci over the convexities are mildly prominent. Skin niki are seen within the posterior right scalp with mild associated soft tissue swelling. Mild diminished density is noted within the periventricular white matter compatible with small vessel ischemic demyelination change. There is no evidence of intracranial hemorrhage being seen. Atrophy is noted within the left temporal lobe compatible with old infarct. Bone window settings were reviewed which show no acute findings within the mastoid or paranasal sinuses. No acute calvarial abnormality is appreciated. Impression: 1. Previous scalp surgery. 2. Senescent change as noted above. 3. Nothing acute is appreciated on noncontrast head CT exam. Diagnostic code #2
--- NOTE | 2020-11-12 13:09 | PCM.DCSUM1 ---
Discharge Summary - Hospital Course Free Text/Narrative:: Mr. Michaud is an 85 yo man on coumadin who fell yesterday. CT of the head showed evidence of small subarachnoid hemorrhage. He was admitted for observation and did well. A repeat head CT the day after admission showed no significant intracranial hemorrhage. He was deemed fit for discharge to home after assessment with physical therapy, and will follow up with his primary doctor, Dr. Goff, within the next few days for assessment and restarting anticoagulation. Diagnosis: Stroke: No - Discharge Data Discharge Date: 11/12/20 Discharge Disposition: Home, Self-Care 01 Condition: Good - Referral to Home Health Primary Care Physician: Gabriel Amador MD - Patient Summary/Data Consults: Consultations 11/12/20 09:35 Consult to Physical Therapy [PT Evaluation and Treatment] [CONS] Routine - Discharge Plan *PRESCRIPTION DRUG MONITORING PROGRAM REVIEWED*: Not Applicable *COPY OF PRESCRIPTION DRUG MONITORING REPORT IN PATIENT ODELL: Not Applicable Home Medications: Home Meds Amiodarone [Cordarone] 100 mg PO DAILY 03/03/20 [History] Aspirin [Halfprin] 81 mg PO DAILY 03/03/20 [History] Furosemide [Lasix] 20 mg PO DAILY 03/03/20 [History] Levothyroxine [Synthroid] 100 mcg PO DAILY 03/03/20 [History] Metoprolol Succinate 50 mg PO BEDTIME 03/03/20 [History] Mirtazapine [Remeron] 15 mg PO BEDTIME 03/03/20 [History] Simvastatin [Zocor] 40 mg PO DAILY 03/03/20 [History] Tamsulosin [Flomax] 0.4 mg PO DAILY 03/03/20 [History] Warfarin Sodium [Coumadin] 2 mg PO DAILY 03/03/20 [History] Acetaminophen [Tylenol] 325 mg PO Q4H PRN 11/11/20 [History] Cholecalciferol (Vitamin D3) [Vitamin D] 1 tab PO DAILY 11/11/20 [History] Cyanocobalamin (Vitamin B12) [Vitamin B12] 1,000 mcg PO DAILY 11/11/20 [History] Nitroglycerin [Nitrostat] 0.4 mg SL DAILY PRN 11/11/20 [History] Spironolactone [Aldactone] 25 mg PO DAILY 11/11/20 [History] lisinopriL [Lisinopril] 5 mg PO DAILY 11/11/20 [History] Patient Handouts: Heart Failure, Diagnosis Forms: ED Department Discharge Referrals: Gabriel Amador MD [Primary Care Provider] - 11/14/20 9:15 am (Hospital follow-up appointment. Discuss restarting your blood thinner medication, Coumadin. Discuss your trouble swallowing with your doctor. Ask to have a video swallow evaluation.) - Discharge Summary/Plan Comment DC Time >30 min.: No - Patient Data Vitals - Most Recent: Last Vital Signs Temp 36.2 C 11/12/20 12:13 Pulse 61 11/12/20 12:13 Resp 14 11/12/20 12:13 BP 131/62 11/12/20 12:13 Pulse Ox 96 11/12/20 12:13 Weight - Most Recent: 61.507 kg I&O - Last 24 hours: Intake & Output 11/11/20 11/12/20 11/12/20 22:59 06:59 14:59 Intake Total 50 Output Total 250 Balance -200 Lab Results - Last 24 hrs: Laboratory Results - last 24 hr 11/11/20 11/11/20 11/11/20 Range/Units 17:28 17:28 17:28 WBC 10.36 H (4.23-9.07) K/mm3 RBC 5.02 (4.63-6.08) M/mm3 Hgb 15.3 (13.7-17.5) gm/dl Hct 47.4 (40.1-51.0) % MCV 94.4 H (79.0-92.2) fl MCH 30.5 (25.7-32.2) pg MCHC 32.3 (32.2-35.5) g/dl RDW Std Deviation 53.1 H (35.1-43.9) fL Plt Count 234 (163-337) K/mm3 MPV 10.1 (9.4-12.3) fl Neut % (Auto) 68.3 H (34.0-67.9) % Lymph % (Auto) 20.9 L (21.8-53.1) % [place] % (Auto) 7.3 (5.3-12.2) % Eos % (Auto) 2.7 (0.8-7.0) Baso % (Auto) 0.3 (0.1-1.2) % Neut # (Auto) 7.07 H (1.78-5.38) K/mm3 Lymph # (Auto) 2.17 (1.32-3.57) K/mm3 [place] # (Auto) 0.76 (0.30-0.82) K/mm3 Eos # (Auto) 0.28 (0.04-0.54) K/mm3 Baso # (Auto) 0.03 (0.01-0.08) K/mm3 Manual Slide Review Abnormal smear PT 15.9 H (9.7-12.0) SECONDS INR 1.50 APTT 33.8 H (21.7-31.4) SECONDS Sodium 141 (136-145) mEq/L Potassium 4.2 (3.5-5.1) mEq/L Chloride 104 (98-107) mEq/L Carbon Dioxide 25 (21-32) mEq/L Anion Gap 16.2 H (5-15) BUN 21 H (7-18) mg/dL Creatinine 1.2 (0.7-1.3) mg/dL Est Cr Clr Drug Dosing 37.73 mL/min Estimated GFR (MDRD) 57 (>60) mL/min BUN/Creatinine Ratio 17.5 (14-18) Glucose 88 (83-115) mg/dL Calcium 8.9 (8.5-10.1) mg/dL Total Bilirubin 0.4 (0.2-1.0) mg/dL AST 26 (15-37) U/L ALT 23 (16-63) U/L Alkaline Phosphatase 74 (46-116) U/L Total Protein 7.9 (6.4-8.2) g/dl Albumin 3.5 (3.4-5.0) g/dl Globulin 4.4 gm/dL Albumin/Globulin Ratio 0.8 L (1-2) SARS-CoV-2 RNA (KRISTEN) (NEGATIVE) 11/11/20 Range/Units 17:33 WBC (4.23-9.07) K/mm3 RBC (4.63-6.08) M/mm3 Hgb (13.7-17.5) gm/dl Hct (40.1-51.0) % MCV (79.0-92.2) fl MCH (25.7-32.2) pg MCHC (32.2-35.5) g/dl RDW Std Deviation (35.1-43.9) fL Plt Count (163-337) K/mm3 MPV (9.4-12.3) fl Neut % (Auto) (34.0-67.9) % Lymph % (Auto) (21.8-53.1) % [place] % (Auto) (5.3-12.2) % Eos % (Auto) (0.8-7.0) Baso % (Auto) (0.1-1.2) % Neut # (Auto) (1.78-5.38) K/mm3 Lymph # (Auto) (1.32-3.57) K/mm3 [place] # (Auto) (0.30-0.82) K/mm3 Eos # (Auto) (0.04-0.54) K/mm3 Baso # (Auto) (0.01-0.08) K/mm3 Manual Slide Review PT (9.7-12.0) SECONDS INR APTT (21.7-31.4) SECONDS Sodium (136-145) mEq/L Potassium (3.5-5.1) mEq/L Chloride (98-107) mEq/L Carbon Dioxide (21-32) mEq/L Anion Gap (5-15) BUN (7-18) mg/dL Creatinine (0.7-1.3) mg/dL Est Cr Clr Drug Dosing mL/min Estimated GFR (MDRD) (>60) mL/min BUN/Creatinine Ratio (14-18) Glucose (83-115) mg/dL Calcium (8.5-10.1) mg/dL Total Bilirubin (0.2-1.0) mg/dL AST (15-37) U/L ALT (16-63) U/L Alkaline Phosphatase (46-116) U/L Total Protein (6.4-8.2) g/dl Albumin (3.4-5.0) g/dl Globulin gm/dL Albumin/Globulin Ratio (1-2) SARS-CoV-2 RNA (KRISTEN) Negative (NEGATIVE) Med Orders - Current: Current Medications Acetaminophen (Tylenol) 975 mg PO Q6H PRN PRN Reason: Pain Ondansetron HCl (Zofran Odt) 4 mg PO Q6H PRN PRN Reason: Nausea/Vomiting Sodium Chloride (Saline Flush) 10 ml FLUSH ASDIRECTED PRN PRN Reason: Keep Vein Open Last Admin: 11/11/20 18:01 Dose: 10 ml Documented by: Discontinued Medications Lidocaine/Tetracaine (Let Soln) 1 ml TOP ONETIME ONE Stop: 11/11/20 17:33 Last Admin: 11/11/20 18:00 Dose: 1 ml Documented by:
== END 2020-11-12 13:35 | disposition home or self-care (01) ==
LOC: JD.ED 17:04 → JD.MS 18:54
PROVIDERS: ADMIT Surgery; ATTEND Surgery
DX: S06.6X9A Traumatic subarachnoid hemorrhage with loss of consciousness of unspecified duration, initial encounter (principal); I48.91 Unspecified atrial fibrillation; I11.0 Hypertensive heart disease with heart failure; I25.10 Atherosclerotic heart disease of native coronary artery without angina pectoris; I50.9 Heart failure, unspecified; I25.2 Old myocardial infarction; Z20.822 Contact with and (suspected) exposure to COVID-19; Z79.82 Long term (current) use of aspirin; Z87.891 Personal history of nicotine dependence; W19.XXXA Unspecified fall, initial encounter; Z88.2 Allergy status to sulfonamides; Z91.040 Latex allergy status; Z79.899 Other long term (current) drug therapy; Z79.01 Long term (current) use of anticoagulants
CPT/HCPCS: 36415; 70450; 80053; 85025; 85610; 85730; 97161; G0378; U0002; 12001; 12002; 99218; 99285; 99285-25

== ENCOUNTER 2022-05-12 23:33 | Emergency (ER) | payer MEDICARE, BC | END 2022-05-13 03:11 | disposition home or self-care (01) | LOC: JD.ED 23:33 | DX: U07.1 COVID-19 (principal); I11.0 Hypertensive heart disease with heart failure; I50.9 Heart failure, unspecified; I25.10 Atherosclerotic heart disease of native coronary artery without angina pectoris; J44.9 Chronic obstructive pulmonary disease, unspecified; I25.2 Old myocardial infarction; F17.210 Nicotine dependence, cigarettes, uncomplicated; Z91.040 Latex allergy status; Z88.2 Allergy status to sulfonamides; Z79.899 Other long term (current) drug therapy; Z79.01 Long term (current) use of anticoagulants; Z79.82 Long term (current) use of aspirin | CPT/HCPCS: 36415; 70450; 71046; 80053; 80307; 81001; 83605; 83735; 83880; 84443; 84484; 85007; 85027; 87040; 93005; 99285; U0002; 93010; 99284 ==